=== PATIENT | female | born 1960 | race Caucasian/White ===

== ENCOUNTER → 2016-10-17 | Outpatient (CLI) | payer OTHER ==
--- NOTE | ~2016-10-17 | EKG ---
[place] [address] [address] [place] [address] ELECTROCARDIOGRAM REPORT Name: MARITZA BAINS Room #: [facility]#: [id number] Admission: 10/17/16 Attend Phys: Jon Bradford MD, F Discharge: Date of : 64 Report #: [id number] THIS REPORT FOR: //name// [facility] Test Date: 2016-10-17 Test Time: 17:02:59 Pat Name: MARITZA BAINS Department: Room: Gender: F [employer] Counselor: Vicente NOE : 1960 Requested By: Jon Bradford Order Number: [id number] MD: Micha Sanchez Measurements Intervals [place] Rate: 78 P: 17 RI: 176 QRS: -2 QRSD: 92 T: -3 QT: 376 QTc: 429 Interpretive Statements Sinus rhythm Low voltage, precordial leads Borderline T abnormalities, diffuse leads No previous ECG available for comparison Electronically Signed On 10-17-2016 17:27:27 [employer] by Micha Sanchez [email or web address] <ELECTRONICALLY SIGNED> By: Micha Sanchez MD 10/17/167 01 01 Micha Sanchez MD /CHANDRIKA
[2016-10-17 16:44] LABS: ABSOLUTE NEUTROPHILS 5.3 thou/uL (1.4-8.2); BASOPHILS 0.6 % (0.0-2.0); EOSINOPHILS 4.4 % (0.0-3.0); HEMATOCRIT 41.5 % (37.0-47.0); HEMOGLOBIN 14.2 gm/dL (12.0-15.0); LYMPHOCYTES 29.1 % (24.0-44.0); MCH 31.3 pg (26.0-34.0); MCHC 34.2 % (28.0-37.0); MCV 91.6 fL (80.0-100.0); MONOCYTES 8.4 % (1.0-8.0); PLATELET COUNT 303 thou/uL (150-400); POLYS 57.5 % (36.0-66.0); RBC 4.53 mil/uL (4.20-5.00); RDW 12.7 % (10.5-14.5); WBC 9.2 thou/uL (4.0-11.0)
[2016-10-17 16:52] LABS: CALCIUM 9.2 mg/dL (8.5-10.1); CREATININE 0.8 mg/dL (0.6-1.3); POTASSIUM 4.3 mmol/L (3.5-5.1)
[2016-10-17 16:55] LABS: MANUAL DIFF NO
[2016-10-17 17:01] LABS: TOTAL BILIRUBIN 0.2 mg/dL (<0.1-1.0); TOTAL PROTEIN 7.4 g/dL (6.4-8.2)
== END ==
LOC: RAD 16:12
PROVIDERS: Surgery
DX: E66.01 Morbid (severe) obesity due to excess calories (principal)